=== PATIENT | male | born 1970 | race African-American/Black ===

== ENCOUNTER 2019-02-14 23:12 | Emergency (ER) | payer MEDICAID ==
[~2019-02-14] VITALS: Ht 177.8 cm; Wt 97.7 kg
[2019-02-15 03:03] LABS: AMPHET/METH SCREEN,URINE POSITIVE (NEGATIVE); BARBITURATE SCREEN, URINE NEGATIVE (NEGATIVE); BENZODIAZEPINES SCREEN,URINE NEGATIVE (NEGATIVE); CANNABINOID SCREEN,URINE NEGATIVE (NEGATIVE); COCAINE SCREEN,URINE NEGATIVE (NEGATIVE); METHADONE SCREEN, URINE NEGATIVE (NEGATIVE); OPIATE SCREEN,URINE NEGATIVE (NEGATIVE)
[2019-02-15 03:04] LABS: PHENCYCLIDINE SCREEN,URINE NEGATIVE (NEGATIVE)
[2019-02-15 03:55] VITALS: BP 133/84
== END 2019-02-15 03:56 | disposition home or self-care (01) ==
LOC: EMS 23:12
DX: T43.621A Poisoning by amphetamines, accidental (unintentional), initial encounter (principal); F17.200 Nicotine dependence, unspecified, uncomplicated; Y92.89 Other specified places as the place of occurrence of the external cause
CPT/HCPCS: 36415; 80307; 99283; G0480

== ENCOUNTER 2019-10-25 11:07 | Emergency (ER) | payer MEDICAID ==
[~2019-10-25] VITALS: Ht 180.3 cm; Wt 95.5 kg
[2019-10-25] MEDS ORDERED: SULFAMETHOX/TRIMETH DS 800-160 MG/TABLET PO ONE (11:45)
[2019-10-25] MEDS ORDERED: IBUPROFEN 800 MG TABLET PO ONE (11:45)
[2019-10-25 12:22] VITALS: BP 154/91
== END 2019-10-25 12:43 | disposition home or self-care (01) ==
LOC: EMS 11:09
DX: L03.116 Cellulitis of left lower limb (principal)
CPT/HCPCS: 10160